=== PATIENT | male | born 1955 | race Caucasian/White ===

== ENCOUNTER 2020-06-13 13:50 | Observation (INO) | payer OTHER ==
[~2020-06-13] VITALS: Ht 172.7 cm; Wt 89.8 kg
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
[2020-06-13 13:55] VITALS: BP 134/78
[2020-06-13] MEDS ORDERED: OMEPRAZOLE40 MG PO (13:58)
[2020-06-13] MEDS ORDERED: WELLBUTRIN SR150 MG PO (13:58)
[2020-06-13] MEDS ORDERED: ALLEGRA-D 12 H1 EAC1 PO (13:59)
[2020-06-13 14:20] LABS: ABSOLUTE EOSINOPHILS 0.1 thou/uL (0.0-0.7); ABSOLUTE LYMPHOCYTES 1.3 thou/uL (0.8-5.3); ABSOLUTE MONOCYTES 0.5 thou/uL (0.0-1.2); ABSOLUTE NEUTROPHILS 4.1 thou/uL (1.6-8.1); BASOPHILS 0.4 %; EOSINOPHILS 1.4 %; HEMATOCRIT 44.7 % (42.0-52.0); HEMOGLOBIN 15.3 gm/dL (14.0-18.0); LYMPHOCYTES 21.7 %; MCH 31.8 pg (26.0-34.0); MCHC 34.2 g/dL (28.0-37.0); MCV 92.9 fL (80.0-100.0); MONOCYTES 8.9 %; MPV 8.2 fl. (7.2-11.1); NUCLEATED RBCS 0 /100WBC; PLATELET COUNT* 260 thou/uL (150-400); POLYS 67.6 %; RBC 4.81 mil/uL (4.50-6.00); RDW-CV 13.2 % (10.5-14.5); WBC 6.1 thou/uL (4.0-11.0)
[2020-06-13 14:25] LABS: CREATININE 1.4 mg/dL (0.6-1.3); POTASSIUM 4.6 mmol/L (3.5-5.1)
[2020-06-13 14:30] LABS: ALBUMIN 4.2 g/dL (3.4-5.0); TOTAL BILIRUBIN 0.6 mg/dL (<0.1-1.0); TOTAL PROTEIN 7.3 g/dL (6.4-8.2)
[2020-06-13 16:28] LABS: URINE BILIRUBIN NEGATIVE (Negative); URINE BLOOD NEGATIVE (Negative); URINE CLARITY CLEAR; URINE COLOR YELLOW; URINE GLUCOSE-RANDOM NEGATIVE (Negative); URINE KETONES NEGATIVE (Negative); URINE LEUKOCYTES-REFLEX NEGATIVE (Negative); URINE NITRITE-REFLEX NEGATIVE (Negative); URINE PROTEIN NEGATIVE (Negative); URINE UROBILINOGEN 0.2 E.U./dl (0.2-1.0)
[2020-06-13] MEDS ORDERED: VALIUM2 MG PO (16:41)
[2020-06-13] MEDS ORDERED: ONDANSETRON HCL4 M2 PO (16:41)
[2020-06-13 18:38] VITALS: BP 145/84
[2020-06-13 18:59] VITALS: BP 135/82
[2020-06-13 20:00] VITALS: BP 125/70
[2020-06-14] VITALS: BP 111/61
[2020-06-14 04:00] VITALS: BP 115/61
--- NOTE | 2020-06-14 05:44 | NUR ---
ASSESSMENT COMPLETED AT BEDSIDE, PLEASE REFER TO CHARTING FOR DETAILS. MEDICATIONS ADMINISTERED PER MAR. HOURLY ROUNDING FOR SAFETY. FALL PRECAUTIONS IN PLACE, BED ALARM IS ON AND CALL LIGHT WITHIN REACH. NO OTHER CONCERNS NOTED AT THIS TIME.
[2020-06-14 08:00] VITALS: BP 121/67
--- NOTE | 2020-06-14 12:54 | EKG ---
[place] [address] ELECTROCARDIOGRAM REPORT Name: REANNA YEEMariah Lennon Room: [address]R.#: [id number] Admission: 06/13/20 Attend Phys: Jada Jefferson Discharge: Date of : 59 Date of Service: 06/13/20 1354 Report #: [id number] THIS REPORT FOR: //name// [facility] ED Test Date: 2020-06-13 Test Time: 13:54:51 Pat Name: JOSELINE YEE Department: Room: [facility] Gender: M Kst Operator: CCD : 1955 Requested By: Richelle Adams Order Number: [id number] MD: Barney Montilla Measurements Intervals [place] Rate: 81 P: 70 ID: [id number] QRS: 98 QRSD: 89 T: 52 QT: 373 QTc: 433 Interpretive Statements Sinus rhythm Right axis deviation No previous ECG available for comparison Electronically Signed On 06-14-2020 12:54:10 CDT by Barney Montilla [email or web address] <ELECTRONICALLY SIGNED> By: Barney Montilla MD, [facility] 06/14/20 1254 1354 1354 Barney Montilla MD, [facility] /EPI
[2020-06-14 14:48] VITALS: BP 112/62
[2020-06-14 18:44] VITALS: BP 115/81
[2020-06-14 20:00] VITALS: BP 113/74
[2020-06-15 00:36] VITALS: BP 125/69
[2020-06-15 05:09] VITALS: BP 123/69
--- NOTE | 2020-06-15 05:30 | NUR ---
No acute event this shift. Pt denies N&V, denies pain. Pt state mild dizziness. Pt state he feel better than the other day. Pt IVF infusing as ordered. Stand by assist to bathroom for safety. VSS, Call light within reach, Will continue to monitor.
[2020-06-15 08:00] VITALS: BP 123/67
--- NOTE | 2020-06-15 10:05 | NUR ---
SW saw pt who was sleeping. SW called pt and completed initial assessment, introduced self, and SW role. Pt lives at home with who is on disability. Pt has been independent with ADLs and mobility. Pt has RW available if needed. Pt does not have hx of HH or OP or SNF. Pt expressed concerns with pt memory issues lately. Pt hopeful that pt could receive MRI, stress test and figure out what might be going wrong with pt. Pt shared that pt plans to receive colonoscopy the end of this month and has hx of [facility] hospitalization due to diverticulitis and gall bladder infection. SW to continue to follow to assist with any dc planning needs.
[2020-06-15] MEDS ORDERED: MECLIZINE HCL25 M1 PO (10:34)
[2020-06-15 12:56] VITALS: BP 123/66
[2020-06-15 13:51] VITALS: BP 123/66
--- NOTE | 2020-06-15 14:00 | NUR ---
PT DENIES DIZZINESS. OK TO DC HOME
--- NOTE | 2020-06-15 14:42 | 2DMMODE ---
[place] [address] 2 D/M-MODE ECHOCARDIOGRAM Name: JOSELINE YEE Citlalli Room: [address] Juliet Mccray#: [id number] Admission: 06/13/20 Attend Phys: Jada Jefferson Discharge: Date of : 59 Date of Service: 06/15/20 1442 Report #: [id number] THIS REPORT FOR: cc: Julito Mandujano MD, David MD Blick, David R. MD [facility] ~ APPROVED REPORT Study performed: 06/15/2020 11:03:35 EXAM: Comprehensive 2D, Doppler, and color-flow Echocardiogram Patient Location: In-Patient Room #: [facility] Status: routine BSA: 2.03 HR: 75 bpm BP: 123/67 mmHg Rhythm: NSR Other Information Study Quality: Good Indications Abnormal ECG 2D Dimensions IVSd: 10.96 (7-11mm) LVOT Diam: 20.15 (18-24mm) LVDd: 45.27 mm PWd: 9.87 (7-11mm) Ascending Ao: 29.14 (22-36mm) LVDs: 26.83 (25-40mm) Aortic Root: 33.40 mm Volumes Left Atrial Volume (Systole) LA ESV Index: 17.10 mL/m2 Aortic Valve AoV Peak Harish.: 1.00 m/s AO Peak Gr.: 3.97 mmHg LVOT Max P.22 mmHg AO Mean Gr.: 1.99 mmHg LVOT Mean P.52 mmHg LVOT Max V: 0.90 m/s AO V2 VTI: 17.59 cm LVOT Mean V: 0.56 m/s LACHO (VTI): 3.12 cm2 LVOT V1 VTI: 17.23 [place] [address] 2 D/M-MODE ECHOCARDIOGRAM Name: JOSELINE YEE Room: [address] Juliet Mccray#: [id number] Admission: 06/13/20 Attend Phys: Jada Jefferson Discharge: Date of : 59 Date of Service: 06/15/20 1442 Report #: [id number] Mitral Valve E/A Ratio: 0.99 MV Decel. Time: 211.56 ms MV E Max Harish.: 0.62 m/s MV PHT: 61.35 ms MVA (PHT): 3.59 cm2 TDI E/Lateral E': 5.17 E/Medial E': 6.20 Medial E' Harish.: 0.10 m/s Lateral E' Harish.: 0.12 m/s Pulmonary Valve PV Peak Harish.: 1.09 m/s PV Peak Gr.: 4.79 mmHg Left Ventricle The left ventricle is normal size. There is normal LV segmental wall motion. There is normal left ventricular wall thickness. Left ventricular systolic function is normal. The left ventricular ejection fraction is within the normal range. LVEF is 55-60%. The left ventricular diastolic function is normal. Right Ventricle The right ventricle is normal size. The right ventricular systolic function is normal. Atria The left atrium size is normal. The right atrium size is normal. Aortic Valve The aortic valve is normal in structure. No aortic regurgitation is present. There is no aortic valvular stenosis. Mitral Valve The mitral valve is normal in structure. There is no mitral valve regurgitation noted. No evidence of mitral valve stenosis. Tricuspid Valve The tricuspid valve is normal in structure. Unable to assess PA pressure. Trace tricuspid regurgitation. Pulmonic Valve Pulmonic valve is not well visualized. There is no pulmonic [place] [address] 2 D/M-MODE ECHOCARDIOGRAM Name: JOSELINE YEE [address] [id number] Admission: 06/13/20 Attend Phys: Jada Jefferson Discharge: Date of : 59 Date of Service: 06/15/20 1442 Report #: [id number] Great Vessels The aortic root is normal in size. IVC is normal in size and collapses >50% with inspiration. Pericardium There is no pericardial effusion. <Conclusion> Left ventricular systolic function is normal. The left ventricular ejection fraction is within the normal range. <ELECTRONICALLY SIGNED> By: Julito Us MD, [facility] 06/15/20 1442 144 144 Julito Us MD, FAC /INF
[2020-06-15 16:06] VITALS: BP 123/70
--- NOTE | 2020-06-15 17:41 | NUR ---
PT HAS REPORTED DCD DIZZINESS. VSS ON RA. SR ON MONITOR. AWAITIN NEURO CONSULT AND MRI PRIOR TO DC HOME. DC INSTRUCTIONS COMPLETED AND IN CHART IF NOTHING FURTHER FROM NEURO. WCTM
--- NOTE | 2020-06-15 20:56 | NUR ---
SPOKE WITH DR CHILD WITH MRI RESULTS GIVEN. ORDERS FOR DISCHARGE. WRITTEN AND VERBAL DISCHARGE INSTRUCTIONS GIVEN TO PT WITH UNDERSTANDING. ENGLISH LECTURER REMOVED FROM ROOM. AMBULATED TO EXIT AND DISMISSED TO SPOUSE.
== END 2020-06-15 20:55 | disposition home or self-care (01) ==
LOC: M.ERS 13:50 → M.TBA-ER 17:08 → M.ERS 17:08 → M.TBA-ER 17:15 → M.2W 17:15 → M.TBA-ER 17:15 → M.2W 19:00
PROVIDERS: Nurse Practitioner Family; ADMIT Internal Medicine; ATTEND Internal Medicine
DX: R42 Dizziness and giddiness (principal); K21.9 Gastro-esophageal reflux disease without esophagitis; F32.9 Major depressive disorder, single episode, unspecified; K57.92 Diverticulitis of intestine, part unspecified, without perforation or abscess without bleeding; R11.2 Nausea with vomiting, unspecified; I10 Essential (primary) hypertension